=== PATIENT | male | born 1990 | race American Indian/Alaskan Native ===

== ENCOUNTER 2017-05-06 09:05 | Emergency (ER) | payer OTHER ==
[2017-05-06 10:00] VITALS: BP 122/65
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
== END 2017-05-06 13:32 | disposition home or self-care (01) ==
LOC: ED 09:05
DX: S16.1XXA Strain of muscle, fascia and tendon at neck level, initial encounter (principal); S33.5XXA Sprain of ligaments of lumbar spine, initial encounter; M25.562 Pain in left knee; V49.49XA Driver injured in collision with other motor vehicles in traffic accident, initial encounter; Y93.89 Activity, other specified; Y92.89 Other specified places as the place of occurrence of the external cause; Y99.8 Other external cause status
CPT/HCPCS: 99282